=== PATIENT | female | born 1965 | race African-American/Black ===

== ENCOUNTER → 2020-06-27 | Outpatient (CLI) | payer BC, OTHER ==
[~2020-06-27] MED LIST: ALEVE-D SINUS-1 EACH PO; ASA81BEC PO; METAMUCIL1 EAC1 PO; MULTI VITAMIN1 EACH PO; VITAMIN C500 M2 PO
== END ==
LOC: LAB 07:51
PROVIDERS: ATTEND Surgery
DX: Z01.812 Encounter for preprocedural laboratory examination (principal); Z20.828 Contact with and (suspected) exposure to other viral communicable diseases

== ENCOUNTER 2020-07-02 09:40 | Day surgery (SDC) | payer BC, OTHER ==
[~2020-07-02] VITALS: Ht 167.6 cm; Wt 96.2 kg
--- NOTE | ~2020-07-02 | O ---
[facility] [place] [address] OPERATIVE REPORT Name: SELIN PEGUERO Room #: 150-3 [facility] M.R.#: [id number] Admission: 07/02/20 Attend Phys: Shaggy Jama MD Discharge: Date of : 61 Report #: [id number] THIS REPORT FOR: cc: Kaley Jama MD,Kaley Jama,Shaggy Santo MD ~ CC: Kaley Jama DATE OF SERVICE: 07/02/2020 PATIENT OF: Dr. Kaley Jama, Dr. Shaggy Jama. 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 PROCEDURE: Excision of a large 15 cm x 12 cm subfascial, submuscular soft tissue tumor with complex layered closure. SURGEON: Shaggy Jama MD ANESTHESIA: Local IV sedation. DESCRIPTION OF PROCEDURE: The patient was brought to the operating room and placed on the operative table in the prone position. The patient underwent IV sedation and the left lateral chest, flank area was then prepped and draped in a sterile fashion. Skin and subcutaneous tissue were then infiltrated with 0.5% Marcaine and 1% Xylocaine in a 1:1 mixture. A transverse skin incision was performed over the mass using a #15 scalpel blade. Hemostasis was obtained using electrocautery. Dissection was carried down through subcutaneous tissue to the fascia, which was then incised and the muscle was then split in the direction of their fibers using a clamp and blunt dissection. This large subfascial, submuscular 15 cm x 12 cm tumor was carefully dissected free using the Metzenbaum scissors and the electrocautery. Mass was removed intact and en bloc and sent as a specimen to pathology. Meticulous hemostasis was checked and obtained in the area using the electrocautery as well as 2-0 chromic suture ligatures. The muscle and fascia were then closed using a running 2-0 Vicryl suture. Subcutaneous tissue was then reapproximated using simple interrupted 2-0 chromic sutures and the skin then closed with a running 4-0 subcuticular Vicryl stitch. Wound was then dressed with Dermabond, Telfa, 4 x 4 gauze, sponge and tape. The patient was then taken to the recovery room awake, alert and in good condition. Estimated blood loss was approximately [address] [facility] [address] [place] [address] OPERATIVE REPORT Name: SELIN PEGUERO Room #: 150-3 [facility]..#: [id number] Admission: 07/02/20 Attend Phys: Shaggy Jama MD Discharge: Date of : 61 Report #: [id number] patient tolerated the procedure well. All sponge, lap and instrument counts were correct x 2. By: [id number] Shaggy Jama MD /jesus
[2020-07-02 10:06] VITALS: BP 130/71
[2020-07-02] MEDS ORDERED: HYDROCODON-ACE1 EA11 PO (11:21)
[2020-07-02 12:37] VITALS: BP 130/71
--- NOTE | 2020-07-07 14:06 | PATH ---
[facility] [address] [place] [address] PATHOLOGY RPT PROCEDURE Name: MARNI PIKE Room #: DEP [facility] M.R.#: [id number] Admission: 07/02/20 Date of : 61 Discharge: 07/02/20 Report #: [id number] Path Case #: [id number] [facility] Accession Number: [id number] . 01 Material submitted: . flank - SOFT TISSUE TUMOR LEFT FLANK. Modifiers: left . 01 Clinical history: . MASS ON BACK . 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 (MAIRA:franca; 07/04/2020) R 07/04/2020 1714 Local . 02 Electronically signed: . George Orosco MD, Pathologist NPI- [id number] . 01 Gross description: . The specimen is received in formalin, labeled "Marni Pike, soft tissue tumor left flank" and consists of a segment of yellow orange lobulated tissue measuring 11.0 x 10.5 x 2.5 cm. It is inked black and sectioned to reveal yellow orange homogeneous cut surfaces with scattered fibrous streaks. No masses or lesions are identified. Engineering Test Mechanic sections are submitted in A1-A6. (SDY; 07/03/2020) SYU/SYU 07/03/2020 1104 Local . 02 Pathologist provided ICD-10: D17.79 . 02 CPT . 750736 Specimen Comment: A courtesy copy of this report has been sent to [phone] Specimen Comment: Report sent to Performed at: [address], [place], [place] [id number] MD Chong Rodriguez MD Phone: [phone] Performed at: 02 [facility] [address], [place], [place] [id number] MD George Orosco MD Phone: [phone]
== END 2020-07-02 13:05 | disposition home or self-care (01) ==
LOC: PRE → OR 09:40 → TBA 09:40 → PRE 10:27 → EDSTATUS 11:05 → OR 11:08 → PRE 11:23 → OR 12:55
PROVIDERS: ATTEND Surgery
DX: D17.1 Benign lipomatous neoplasm of skin and subcutaneous tissue of trunk (principal); Z98.890 Other specified postprocedural states; Z79.899 Other long term (current) drug therapy; Z79.82 Long term (current) use of aspirin; Z90.49 Acquired absence of other specified parts of digestive tract
CPT/HCPCS: 50010; 50101; 50386; 50403; 54118; 56524; 56526; 62110; 62850; 70005